=== PATIENT | male | born 1965 | race American Indian/Alaskan Native ===

== ENCOUNTER 2016-11-23 11:06 | Emergency (ER) | payer OTHER, BC ==
[2016-11-23 11:07] VITALS: BMI 34.0
[2016-11-23 11:12] VITALS: BP 140/95; PULSE 81; RESP 19; TEMP 98.2; O2SAT 98
--- NOTE | 2016-11-23 12:27 | ED PDOC ---
Lower Extremity Pain/Injury Time Seen by Provider: 11/23/16 12:00 Chief Complaint (Nursing): Lower Extremity Problem/Injury Chief Complaint (Provider): Toe pain History Per: Patient Additional Complaint(s): Ptis a 51 yo male, PMH of HTN and High Cholesterol, presents to ED with complaints of right great toe pain. Pt states handicap lift came down on right foot today. pt was wearing black work shoes Past Medical History Reviewed: Nursing Documentation, Vital Signs Vital Signs: Last Vital Signs Temp 98.2 F 11/23/16 11:11 Pulse 81 11/23/16 11:11 Resp 19 11/23/16 11:11 BP 140/95 H 11/23/16 11:11 Pulse Ox 98 11/23/16 11:11 - Medical History PMH: HTN, Hypercholesterolemia, Hyperthyroidism (Non complient with meds), Peripheral Edema (+2 edema to both ankles and feet), TIA (5 yrs ago left side pain resolved) Denies: Depression - Family History Family History: States: Unknown Family Hx - Living Arrangements Living Arrangements: With Family - Social History Current smoker - smoking cessation education provided: No Alcohol: None Drugs: Denies - Home Medications Home Medications: Ambulatory Orders Medication Instructions Recorded Levothyroxine Sodium 0.3 mg PO DAILY 11/21/13 Acetaminophen/Oxycodone Hydr 1 tab PO Q8 #4 tab 01/16/14 [Percocet 325 mg-5 mg] Tamsulosin [Flomax] 0.4 mg PO DAILY #5 cap 01/16/14 Ibuprofen [Motrin] 600 mg PO Q6 #20 tab 11/23/16 - Allergies Allergies/Adverse Reactions: Allergies Allergy/AdvReac Type Severity Reaction Status Date / Time No Known Allergies Allergy Verified 11/21/13 05:16 Review of Systems ROS Statement: Except As Marked, All Systems Reviewed And Found Negative Musculoskeletal: Positive for: Other (toe contusion) Physical Exam - Reviewed Nursing Documentation Reviewed: Yes Vital Signs Reviewed: Yes - Physical Exam Appears: Positive for: Well, Non-toxic, No Acute Distress Head Exam: Positive for: ATRAUMATIC, NORMAL INSPECTION, NORMOCEPHALIC Skin: Positive for: Normal Color, Warm, DRY Eye Exam: Positive for: EOMI, Normal appearance, PERRL ENT: Positive for: Normal ENT Inspection Neck: Positive for: Normal, Painless ROM Cardiovascular/Chest: Positive for: Regular Rate, Rhythm Respiratory: Positive for: CNT, Normal Breath Sounds Gastrointestinal/Abdominal: Positive for: Normal Exam, Bowel Sounds, Soft Back: Positive for: Normal Inspection Extremity: Positive for: Normal ROM, Tenderness (right great toe). Negative for : Deformity, Swelling Neurologic/Psych: Positive for: Alert, Oriented - ECG O2 Sat by Pulse Oximetry: 98 Medical Decision Making Medical Decision Making: XR: NAd, as read by LUZ Disposition - Clinical Impression Clinical Impression: Toe contusion - Patient ED Disposition Is Patient to be Admitted: No - Disposition Disposition: Routine/Home Disposition Time: 15:52 Condition: STABLE Prescriptions: Ibuprofen [Motrin] 600 mg PO Q6 #20 tab Instructions: Foot Contusion (ED) Forms: [facility] (Ukrainian)
--- NOTE | 2016-11-23 13:01 | RAD ---
PROCEDURE: Radiographs of the right great toe. TECHNIQUE:: AP radiograph of the right foot, with oblique and lateral view of the right great toe. COMPARISON: None. FINDINGS: BONES: Bone alignment and mineralization are normal. There is no acute fracture or bone destruction. JOINTS: Normal. SOFT TISSUES: Normal. OTHER FINDINGS: None. IMPRESSION: No acute fracture or dislocation.
== END 2016-11-23 14:45 | disposition home or self-care (01) ==
LOC: H.ER 11:06
DX: S90.111A Contusion of right great toe without damage to nail, initial encounter (principal); W22.8XXA Striking against or struck by other objects, initial encounter; Y92.89 Other specified places as the place of occurrence of the external cause; E05.90 Thyrotoxicosis, unspecified without thyrotoxic crisis or storm; I10 Essential (primary) hypertension; Z86.73 Personal history of transient ischemic attack (TIA), and cerebral infarction without residual deficits